=== PATIENT | male | born 1955 | race Two or more races ===

== ENCOUNTER → 2022-05-26 | Outpatient (CLI) | payer MEDICARE, OTHER ==
[2022-05-26 19:17] LABS: HCT 42.9 % (39.6-50.0); HGB 14.2 g/dL (13.0-17.0); MCH 31.9 pg (27.0-32.0); MCHC 33.1 g/dL (32.0-37.0); MCV 96.4 fL (80.0-97.0); Mean Platelet Volume 11.5 fL (9.5-12.2); NRBC Per 100 WBC 0 /100 WBCS (0.0-0.0); Platelet Count 157 X 10*3/uL (140-440); RBC 4.45 X 10*6/uL (4.40-5.60); RDW 13.1 % (11.5-14.5); WBC 7.82 X 10*3/uL (4.50-10.00)
[2022-05-26 19:50] LABS: African American GFR (CKD) 114.8 (60.0-200.0); Anion Gap 10.1 mmol/L (10.00-18.00); Blood Urea Nitrogen 9.1 mg/dL (9.0-27.0); Carbon Dioxide 27.9 mmol/L (20.0-27.5); Potassium 4.8 mmol/L (3.5-5.5)
== END | disposition home or self-care (01) ==
LOC: LABPAT 11:34
PROVIDERS: ATTEND Internal Medicine
DX: Z01.812 Encounter for preprocedural laboratory examination (principal); G45.1 Carotid artery syndrome (hemispheric); I25.10 Atherosclerotic heart disease of native coronary artery without angina pectoris; R06.02 Shortness of breath
CPT/HCPCS: 80051; 82565; 84520; 85027

== ENCOUNTER → 2022-06-01 | Day surgery (SDC) | payer MEDICARE, OTHER ==
[2022-05-31 11:56] VITALS: BMI 27.1
[~2022-06-01] MED LIST: ASPIRIN 325 MG TAB PO PRN; HEPARIN SODIUM 1,000 UN/ML (10ML VL) IV ONE; HEPARIN SODIUM 1,000 UN/ML (10ML VL) ONE; INSULIN ASPART (NovoLOG) 100 UNIT/ML VIAL SQ ONE; IOPAMIDOL-250 100ML BTL INTRAARTER ONE; LIDOCAINE 1% INJ 10MG/ML (30 ML VIAL-PF) SQ ONE; MIDAZOLAM 2 MG/2 ML VIAL IVP ONE; SODIUM CHLORIDE 0.9% 1,000 ML in EMPTY BAG 1 BAG IV ONE; VERAPAMIL 2.5 MG/ML 2 ML AMP ONE; VERAPAMIL SYRINGE (5 MG/10 ML) INTRAARTER ONE; fentaNYL (PF) 50 MCG/1 ML VIAL IVP ONE; fentaNYL (PF) 50 MCG/ML 2 ML AMP ONE
[2022-06-01 08:02] LABS: Glucose,Whole Blood 215 mg/dL (70-110)
[2022-06-01 08:22] VITALS: RESP 16; TEMP 97.5
--- NOTE | 2022-06-01 10:17 | P.PCN ---
Description of Procedure: PROCEDURES PERFORMED: Abdominal angiography with bilateral runoff INDICATION: Daykin class 4 claudication, abnormal ultrasound CONSENT:I have discussed the risks, benefits and alternative therapies for the above-mentioned procedure and for both sedation/analgesia as well as necessary blood product administration, if indicated, as they pertain to this patient. The patient has indicated understanding and acceptance of the risks and procedures discussed. PROCEDURE: After the risks, benefits and alternatives of the above mentioned procedure explained in detail with the patient, informed consent was obtained. Patient was taken to the catheterization lab and prepped and draped in usual fashion. 1% lidocaine was used to anesthetize the right radial area. A 6- Lao sheath was placed in the right radial artery using modified Seldinger technique. A 5-Lao pigtail catheter was inserted to the abdominal aorta and DSA imaging was obtained of the abdominal aorta as well as runoff. A 6-Lao multipurpose catheter was inserted into the left common femoral area and dedicated popliteal and infrapopliteal angiogram was performed.. Patient tolerated the procedure well. A TR band was placed with hemostasis achieved. Patient was transported back to the post catheterization holding area in stable condition. Conscious Sedation: Patient was monitored under the direct supervision of vision of myself for conscious sedation using Versed and fentanyl for a total duration of 25 minutes HEMODYNAMICS: Aorta: 122/78 Abdominal aorta: The abdominal aorta has mild calcifcation. Renal arteries were not imaged. There is no significant dissection or aneurysm. There is no significant stenosis. Right lower extremity: Right common iliac artery: There is no significant stenosis. Right external iliac artery: There is no significant stenosis. Right internal iliac artery: There is no significant stenosis. Right common femoral artery: There is no significant stenosis. Right profunda: There is no significant stenosis. Right SFA: There is no significant stenosis. Right popliteal artery: There is no significant stenosis. Right tibioperoneal trunk: There is no significant stenosis. Right anterior tibial artery: Infrapopliteal arteries were not well imaged with runoff however appeared to have 3 vessel runoff. Right porterior tibial artery: Infrapopliteal arteries were not well imaged with runoff however appeared to have 3 vessel runoff. Right peroneal artery: Infrapopliteal arteries were not well imaged with runoff however appeared to have 3 vessel runoff. Left lower extremity: Left common iliac artery: There is no significant stenosis. Left external iliac artery: There is no significant stenosis. Left internal iliac artery: There is no significant stenosis. Left common femoral artery: There is no significant stenosis. Left profunda: There is no significant stenosis. Left SFA: There is a distal left SFA 100% stenosis extending into the P1 segment of the popliteal artery. Left popliteal artery: There is no significant stenosis. Left tibioperoneal trunk: There is no significant stenosis. Left anterior tibial artery: There is 100% AT stenosis. Left posterior tibial artery: There is 100% posterior tibial artery stenosis. Left peroneal artery: There is a 50% peroneal stenosis. FINAL IMPRESSION: 1. Peripheral arterial disease as described above including short segment INTERFACE ANALYST of distal left SFA into popliteal artery with 1 vessel runoff on the left. PLAN: 1. Aggressive risk factor modification per most recent ACC/AHA guidelines. 2. Peripheral endovascular intervention within the next 1 week. Discussed tobacco cessation.
--- NOTE | 2022-06-01 10:32 | IR ---
EXAMINATION TYPE: IR angio abdominal w runoff DATE OF EXAM: 06/01/2022 COMPARISON: NONE HISTORY: Fluoroscopy time. Fluoroscopy was provided to the referring clinician.
[2022-06-01 16:34] VITALS: PULSE 60
[2022-06-01 16:39] VITALS: BP 126/63
== END ==
LOC: CATHCVL 07:30
PROVIDERS: ATTEND Internal Medicine
DX: I73.9 Peripheral vascular disease, unspecified (principal); I25.10 Atherosclerotic heart disease of native coronary artery without angina pectoris; I10 Essential (primary) hypertension; E11.9 Type 2 diabetes mellitus without complications; F17.210 Nicotine dependence, cigarettes, uncomplicated; Z82.49 Family history of ischemic heart disease and other diseases of the circulatory system
CPT/HCPCS: 36245; 75625; 75716; C1769 ×2; C1894; J2250; J2001; J1644; Q9966; J3010

== ENCOUNTER 2022-06-06 10:10 | Day surgery (SDC) | payer MEDICARE, OTHER ==
[~2022-06-06 10:10] MED LIST changes: -HEPARIN SODIUM 1,000 UN/ML (10ML VL) IV ONE; -HEPARIN SODIUM 1,000 UN/ML (10ML VL) ONE; -INSULIN ASPART (NovoLOG) 100 UNIT/ML VIAL SQ ONE; -IOPAMIDOL-250 100ML BTL INTRAARTER ONE; -LIDOCAINE 1% INJ 10MG/ML (30 ML VIAL-PF) SQ ONE; -MIDAZOLAM 2 MG/2 ML VIAL IVP ONE; -VERAPAMIL 2.5 MG/ML 2 ML AMP ONE; -VERAPAMIL SYRINGE (5 MG/10 ML) INTRAARTER ONE; -fentaNYL (PF) 50 MCG/1 ML VIAL IVP ONE; -fentaNYL (PF) 50 MCG/ML 2 ML AMP ONE
[2022-06-06 10:58] LABS: Glucose,Whole Blood 300 mg/dL (70-110)
[2022-06-06] MEDS ORDERED: INSULIN ASPART (NovoLOG) 100 UNIT/ML VIAL SQ ONE (11:01)
[2022-06-06 11:17] LABS: Basophils # (A) 0.1 k/uL (0-0.2); Basophils % (A) 1 %; Eosinophils # (A) 0.2 k/uL (0-0.7); Eosinophils % (A) 3 %; HCT 45.7 % (39.0-53.0); HGB 15.6 gm/dL (13.0-17.5); Lymphocytes # (A) 1.4 k/uL (1.0-4.8); Lymphocytes % (A) 18 %; MCH 32.8 pg (25.0-35.0); MCHC 34.3 g/dL (31.0-37.0); MCV 95.9 fL (80.0-100.0); Mean Platelet Volume 9.3; Monocytes # (A) 0.6 k/uL (0-1.0); Monocytes % (A) 7 %; Neutrophils # (A) 5.5 k/uL (1.3-7.7); Neutrophils % (A) 71 %; Platelet Count 186 k/uL (150-450); RBC 4.76 m/uL (4.30-5.90); RDW 12.7 % (11.5-15.5); WBC 7.8 k/uL (3.8-10.6)
[2022-06-06 11:28] LABS: African American GFR (CKD) >90 (>60 ml/min/1.73 sqM); Anion Gap 5 mmol/L; Blood Urea Nitrogen 12 mg/dL (9-20); Carbon Dioxide 29 mmol/L (22-30); Chloride 101 mmol/L (98-107); Glucose 308 mg/dL (74-99); Non-African American GFR(CKD) >90 (>60 ml/min/1.73 sqM); Potassium 4.7 mmol/L (3.5-5.1); Sodium 135 mmol/L (137-145)
[2022-06-06] MEDS ORDERED: HEPARIN SODIUM 1,000 UN/ML (10ML VL) ONE (12:00)
[2022-06-06] MEDS ORDERED: fentaNYL (PF) 50 MCG/ML 2 ML AMP ONE (12:01)
[2022-06-06] MEDS ORDERED: LIDOCAINE 1% INJ 10MG/ML (30 ML VIAL-PF) SQ ONE (12:10)
[2022-06-06] MEDS ORDERED: fentaNYL (PF) 50 MCG/1 ML VIAL IV ONE (12:10)
[2022-06-06] MEDS ORDERED: MIDAZOLAM 2 MG/2 ML VIAL IV ONE (12:10)
[2022-06-06] MEDS ORDERED: HEPARIN SODIUM 1,000 UN/ML (10ML VL) IV ONE (12:21)
[2022-06-06] MEDS ORDERED: NITROGLYCERIN 1000MCG/10ML SYRINGE INTRAARTER ONE (12:37)
[2022-06-06] MEDS: HEPARIN SODIUM 1,000 UN/ML (10ML VL) IV ONE ×3 (12:38→13:25)
[2022-06-06] MEDS ORDERED: CLOPIDOGREL 75 MG TAB PO ONE (13:01)
[2022-06-06] MEDS ORDERED: CLOPIDOGREL 75 MG TAB ONE (13:01)
[2022-06-06] MEDS ORDERED: IOPAMIDOL-300 100ML BTL INJ ONE ×2 (13:25)
[2022-06-06] MEDS ORDERED: NALOXONE 0.4 MG/ML 1 ML VIAL IVP PRN (13:33)
[2022-06-06 17:25] LABS: Glucose,Whole Blood 245 mg/dL (70-110)
[2022-06-06 19:57] LABS: Glucose,Whole Blood 257 mg/dL (70-110)
[2022-06-06] MEDS: lisinopriL 5 MG TAB PO SCH (20:16)
[2022-06-06] MEDS: buPROPion SR 150 MG TABLET.ER PO SCH (20:16)
[2022-06-06] MEDS: GABAPENTIN 300 MG CAP PO SCH (20:16)
[2022-06-06] MEDS: METOPROLOL TARTRATE 25 MG TAB PO SCH (20:16)
[2022-06-06] MEDS: INSULIN ASPART (NovoLOG) 100 UNIT/ML VIAL SQ SCH (20:16)
[2022-06-06] MEDS ORDERED: NON FORMULARY DRUG (Calcium Carb/Mag Ox/Zinc Sulf [Cal-Mag-Zinc 334-134-5 Mg Tab] 1 EACH T PO SCH (21:00)
[2022-06-06] MEDS ORDERED: ATORVASTATIN 40 MG TAB PO SCH (21:00)
--- NOTE | 2022-06-06 22:25 | P.OP ---
Description of Procedure: PROCEDURES PERFORMED: Left lower extremity runoff, CLIENT BUSINESS MANAGER and stent of left distal SFA with 6.0 x 60mm Zilver PTX, post dilated with a 6.0mm balloon, atherectomy L SFA with Hawkone device INDICATION: [place]n class 4 claudication, abnormal ultrasound, RIGGING SUPERVISOR left SFA CONSENT:I have discussed the risks, benefits and alternative therapies for the above-mentioned procedure and for both sedation/analgesia as well as necessary blood product administration, if indicated, as they pertain to this patient. The patient has indicated understanding and acceptance of the risks and procedures discussed. PROCEDURE: After the risks, benefits and alternatives of the above mentioned procedure explained in detail with the patient, informed consent was obtained. Patient was taken to the catheterization lab and prepped and draped in usual fashion. 1% lidocaine was used to anesthetize the right femoral area. A 6- Tamazight sheath was placed in the right femoral artery using modified Seldinger technique. Using a rim catheter and a 0.035 stiff glide wire, contralateral access was obtained and the short sheath was exchanged for a 6Fr destination sheath. Angiography was performed which showed similar imaging as previous with distal L SFA RIGGING SUPERVISOR. Using a 0.035 stiff glide wire and a glide catheter, the lesion was able to be wired and verified with injection. Next balloon angiography was performed with a 4.0 x 60mm balloon. There was significant recoil. Therefore atheterectomy was performed for 2 passess with the Hawkone device after exchanging for a 0.014 wire. Ballloon angioplasty with a 5.0 balloon still showed significant recoil and therefore decision was made to place a stent. A 6.0 x 60mm Zilver PTX ROBERT was placed in the distal left SFA. The stent was post dilated with a 6.0 mm balloon. The wire was pulled and angiography performed showing similar runoff. Preintervention there was 100% stenosis and no antegrade flow and post intervention there was 0% stenosis with uninhibited flow. Right femoral angiogram showed adequate anatomy for closure and therefore a 6Fr Angioseal was placed. Conscious Sedation: Patient was monitored under the direct supervision of vision of myself for conscious sedation using Versed and fentanyl for a total duration of 87 minutes HEMODYNAMICS: Aorta: 116/81 Left lower extremity: Left common iliac artery: There is no significant stenosis. Left external iliac artery: There is no significant stenosis. Left internal iliac artery: There is no significant stenosis. Left common femoral artery: There is no significant stenosis. Left profunda: There is no significant stenosis. Left SFA: There is a distal left SFA 100% stenosis extending into the P1 segment of the popliteal artery. Left popliteal artery: There is no significant stenosis. Left tibioperoneal trunk: There is no significant stenosis. Left anterior tibial artery: There is 100% AT stenosis. Left posterior tibial artery: There is 90% posterior tibial artery stenosis. Left peroneal artery: There is no significant peroneal stenosis. FINAL IMPRESSION: 1. Peripheral arterial disease as described above including short segment RIGGING SUPERVISOR of distal left SFA into popliteal artery with 1 vessel runoff on the left. 2. S/p CLIENT BUSINESS MANAGER and stent of left distal SFA with 6.0 x 60mm Zilver PTX, post dilated with a 6.0mm balloon PLAN: 1. Aggressive risk factor modification per most recent ACC/AHA guidelines. 2. Aspirin and Plavix for minimum of 3 months. 3. Discussed tobacco cessation.
[2022-06-07 03:02] VITALS: TEMP 98.1
[2022-06-07 06:15] LABS: Glucose,Whole Blood 193 mg/dL (70-110)
[2022-06-07] MEDS: INSULIN ASPART (NovoLOG) 100 UNIT/ML VIAL SQ SCH (06:22)
[2022-06-07 07:08] VITALS: BP 118/63; PULSE 67; RESP 18
[2022-06-07 08:05] LABS: African American GFR (CKD) >90 (>60 ml/min/1.73 sqM); Non-African American GFR(CKD) >90 (>60 ml/min/1.73 sqM)
[2022-06-07] MEDS ORDERED: ISOSORBIDE MONONITRATE ER 30 MG TAB.ER.24H PO SCH (09:00)
[2022-06-07] MEDS ORDERED: PIOGLITAZONE 15 MG TAB PO SCH (09:00)
[2022-06-07] MEDS ORDERED: DAPAGLIFLOZIN PROPANEDIOL 10 MG TABLET PO SCH (09:00)
[2022-06-07] MEDS ORDERED: ASPIRIN 81 MG PO SCH (09:00)
[2022-06-07] MEDS ORDERED: CLOPIDOGREL 75 MG TAB PO SCH (09:00)
[2022-06-07] MEDS: METOPROLOL TARTRATE 25 MG TAB PO SCH (09:13)
[2022-06-07] MEDS: GABAPENTIN 300 MG CAP PO SCH (09:13)
[2022-06-07] MEDS: buPROPion SR 150 MG TABLET.ER PO SCH (09:13)
[2022-06-07] MEDS: lisinopriL 5 MG TAB PO SCH (09:13)
--- NOTE | 2022-06-07 12:09 | IR ---
EXAMINATION TYPE: IR stent intravas non coronary DATE OF EXAM: 06/06/2022 COMPARISON: NONE HISTORY: Fluoroscopy time. Fluoroscopy was provided to the referring clinician.
--- NOTE | 2022-06-07 13:29 | P.DS ---
Providers Attending physician: Aramis Marcano DO Primary care physician: Santy Choi [facility] Course: Patient upon a 66-year-old male with history of tobacco abuse and PAD who has been having some discoloration of his left great toe and pain at rest concerning for Kuldeep class 4 claudication. He therefore underwent diagnostic angiogram which showed one-vessel runoff on the left with 100% distal left SFA stenosis. He therefore underwent staged left SFA stenting from a right femoral approach on 06/06/2022. Procedure went well and patient not having any significant issues after with no hematoma. He did notice some improvement in his left toe pain. Discussed tobacco cessation and patient is agreeable to attempt. Patient Condition at Discharge: Good Plan - Discharge Summary Discharge Rx Participant: No New Discharge Prescriptions: New Clopidogrel [Plavix] 75 mg PO DAILY #90 tablet No Action lisinopriL [Zestril] 5 mg PO BID Isosorbide Mononitrate ER [Imdur] 30 mg PO DAILY buPROPion HCL [buPROPion HCL SR] 150 mg PO Q12HR Gabapentin [Neurontin] 300 mg PO BID Pioglitazone [Actos] 30 mg PO DAILY Metoprolol Tartrate [Lopressor] 25 mg PO BID Atorvastatin [Lipitor] 40 mg PO HS sitaGLIPtin PHOS/metFORMIN HCL [Janumet 50-1,000 mg Tablet] 1 each PO BID Dapagliflozin Propanediol [Farxiga] 10 mg PO DAILY Aspirin [Adult Low Dose Aspirin EC] 81 mg PO DAILY Calcium Carb/Mag Ox/Zinc Sulf [Hzv-Olr-Caiw 334-134-5 mg Tab] 1 each PO HS Elderberry Sambuscus Gummy 2 dose PO DAILY Discharge Medication List Aspirin [Adult Low Dose Aspirin EC] 81 mg PO DAILY 05/31/22 [History] Atorvastatin [Lipitor] 40 mg PO HS 05/31/22 [History] Calcium Carb/Mag Ox/Zinc Sulf [Spt-Nxz-Vwrw 334-134-5 mg Tab] 1 each PO HS 05/31/22 [History] Dapagliflozin Propanediol [Farxiga] 10 mg PO DAILY 05/31/22 [History] Elderberry Sambuscus Gummy 2 dose PO DAILY 05/31/22 [History] Gabapentin [Neurontin] 300 mg PO BID 05/31/22 [History] Isosorbide Mononitrate ER [Imdur] 30 mg PO DAILY 05/31/22 [History] Metoprolol Tartrate [Lopressor] 25 mg PO BID 05/31/22 [History] Pioglitazone [Actos] 30 mg PO DAILY 05/31/22 [History] buPROPion HCL [buPROPion HCL SR] 150 mg PO Q12HR 05/31/22 [History] lisinopriL [Zestril] 5 mg PO BID 05/31/22 [History] sitaGLIPtin PHOS/metFORMIN HCL [Janumet 50-1,000 mg Tablet] 1 each PO BID 05/31/22 [History] Clopidogrel [Plavix] 75 mg PO DAILY #90 tablet 06/07/22 [Rx] Follow up Appointment(s)/Referral(s): Ava Owen MD [STAFF PHYSICIAN] - 1 Week (THE OFFICE WILL CALL YOU WITH AN APPOINTMENT DATE AND TIME) Patient Instructions/Handouts: Clopidogrel (By mouth), Peripheral Vascular Stent Placement (DC) Discharge Disposition: HOME SELF-CARE
== END 2022-06-07 10:58 | disposition home or self-care (01) ==
LOC: CATHCVL 10:10 → 6NMEDSUR 13:27 → CATHCVL 06-07 10:58
PROVIDERS: ATTEND Internal Medicine
DX: I73.9 Peripheral vascular disease, unspecified (principal); I10 Essential (primary) hypertension; E11.9 Type 2 diabetes mellitus without complications; F17.210 Nicotine dependence, cigarettes, uncomplicated; Z95.5 Presence of coronary angioplasty implant and graft; Z82.49 Family history of ischemic heart disease and other diseases of the circulatory system; Z79.82 Long term (current) use of aspirin; Z79.899 Other long term (current) drug therapy
CPT/HCPCS: 37227; 80048; 82565; 85025; C1760; C1769 ×5; C1894 ×2; C1725; C1714; C1874; J2250; S0106 ×2; J2001; J1644; Q9967; J3010